=== PATIENT | male | born 1980 | race Caucasian/White ===

== ENCOUNTER 2021-08-06 04:56 | Emergency (ER) | payer OTHER ==
[2021-08-06 05:02] VITALS: BP 134/72; PULSE 80; TEMP 98; BMI 32.1
[2021-08-06] MEDS ORDERED: ACETAMINOPHEN 325 MG TABLET (FP) PO ONE (05:23)
[2021-08-06] MEDS ORDERED: IBUPROFEN 600 MG TABLET (FP) PO ONE ×2 (05:23→05:40)
[2021-08-06] MEDS ORDERED: METHOCARBAMOL 500 MG TABLET PO ONE (05:24)
[2021-08-06] MEDS ORDERED: METHOCARBAMOL 500 MG TABLET ONE (05:40)
== END 2021-08-06 05:54 | disposition home or self-care (01) ==
LOC: JER 04:56
DX: M79.651 Pain in right thigh (principal); M79.652 Pain in left thigh
CPT/HCPCS: 99283-25

== ENCOUNTER 2022-12-24 11:00 | Emergency (ER) | payer OTHER ==
[2022-12-24 11:19] VITALS: BP 126/98; PULSE 92; RESP 20; TEMP 97.5; BMI 34.8
[2022-12-24] MEDS ORDERED: IBUPROFEN 400 MG TABLET (FP) PO ONE ×2 (11:27→11:34)
== END 2022-12-24 12:10 | disposition home or self-care (01) ==
LOC: FER 11:00
DX: S81.852A Open bite, left lower leg, initial encounter (principal); S97.02XA Crushing injury of left ankle, initial encounter; M25.572 Pain in left ankle and joints of left foot; W54.0XXA Bitten by dog, initial encounter; Y93.89 Activity, other specified; Y92.9 Unspecified place or not applicable
CPT/HCPCS: 73610-TC-LT-FY; 99283-25